=== PATIENT | female | born 1950 | race Caucasian/White ===

== ENCOUNTER → 2017-08-23 | Outpatient (CLI) | payer MEDICARE, MEDICAID ==
--- NOTE | 2017-08-23 16:54 | WOMENS IMAGING REPORT ---
EXAM DESCRIPTION: 3D SCREENING MAMMO BILAT COMPLETED DATE/TIME: 08/23/2017 7:33 am REASON FOR STUDY: ROUTINE BILATERAL SCREENING;Z12.31 Z12.31 ENCNTR SCREEN MAMMOGRAM FOR MALIGNANT N EOPLASM OF DAVON COMPARISON: 2014 to 2015 TECHNIQUE: Standard craniocaudal and mediolateral oblique views of each breast recorded using digita l acquisition and breast tomosynthesis. LIMITATIONS: None. FINDINGS: No masses, calcifications or architectural distortion. No areas of suspicion. Read with the assistance of CAD. .[facility] - R2 Cenova Version 1.3 .[facility] - R2 Cenova Version 1.3 .[facility] - R2 Cenova Version 2.4 .[facility] - R2 Cenova Version 2.4 .[facility] - R2 Striker Out Version 9.2 IMPRESSION: NORMAL MAMMOGRAM. BIRADS 1. BREAST DENSITY: b. There are scattered areas of fibroglandular density. BIRAD: 1 NEGATIVE RECOMMENDATION: ROUTINE SCREENING COMMENT: The patient has been notified of the results by letter per SA requirements. Additional no tification policies are in place for contacting patient with suspicious or incomplete findings. Quality ID #[id number]: The [employer] recommends an annual screening mammogram for women aged 40 years or over. This facility utilizes a reminder system to ensure that all patients receive reminder letters, and/or direct phone calls for appointments. This includes reminders for routine scr eening mammograms, diagnostic mammograms, or other Breast Imaging Interventions when appropriate. Th is patient will be placed in the appropriate reminder system. The [employer] (ACR) has developed recommendations for screening MRI of the breast s in certain patient populations, to be used in conjunction with mammography. Breast MRI surveillanc e may be appropriate for women with more than 20% lifetime risk of developing breast cancer as deter mined by genetic testing, significant family history of the disease, or history of mantle radiation f or Hodgkins Disease. ACR Practice Guidelines 2008. DBT Technology DBT is a type of tomographic mammography. With conventional mammography, overlapping breast tissue ma y make lesions difficult to detect, even with good compression. DBT uses an x-ray tube that rotates a round the breast, taking images at different angles. These images are then combined to create thin sl ices of the breast that the radiologist can view as a 3D reconstruction. The [employer] unit can perform full-field digital mammograms (2D imaging); or DBT (3D imaging); or both, in a combination mode that quickly performs both the mammogram and the tomosynthesis scan while the breast is still compressed. PQRS 6045F: Fluoroscopic imaging is not utilized for breast tomosynthesis. TECHNICAL DOCUMENTATION: FINDING NUMBER: (1) ASSESSMENT: (1) JOB ID: [id number] [employer]- All Rights Reserved
== END ==
LOC: WI 07:06
PROVIDERS: ATTEND Internal Medicine
DX: Z12.31 Encounter for screening mammogram for malignant neoplasm of breast (principal)
CPT/HCPCS: 77063; 77067

== ENCOUNTER → 2018-05-20 | Outpatient (CLI) | payer MEDICARE, MEDICAID ==
--- NOTE | 2018-05-20 12:30 | RADIOLOGY REPORT (SQ) ---
EXAM DESCRIPTION: U/S BIOPSY THYROID COMPLETED DATE/TIME: 05/20/2018 10:39 am REASON FOR STUDY: LOCALIZED ENLARGED LYMPH NODES;NONTOXIX MULTINODUL R59.0 LOCALIZED ENLARGED LYMPH NODES E04.2 NONTOXIC MULTINODULAR GOITER COMPARISON: Thyroid ultrasound 02/11/2018 TECHNIQUE: The prior imaging from 02/11/2018 was reviewed. Next patient For biopsy planning, the patient was scanned by both myself as well as the technologist. The patient has multiple bilateral cystic and solid thyroid nodules, which most likely represent a mu ltinodular goiter. Because of limitations of the patient's neck mobility, with prior fusion with hardware, and advanced kyphosis, there was a very limited window over the lower neck for thyroid ultrasound and fine needle aspiration of any nodules. Today's ultrasound imaging, limitations of acoustic window for biopsy were discussed with the patient , she declined biopsy today. 1 year follow-up ultrasound in February 2019 is recommended to exclude gr owth or change in the thyroid gland probable multinodular goiter. On today's ultrasound exam, the right lobe thyroid measures 4.3 x 2 x 2 cm in size, with a colloid cy st 1 x 0.6 cm in size in the upper pole thyroid, and a mostly solid nodule in the posterior midpole t hyroid 2.1 x 1.4 cm in size. These findings are unchanged from 02/11/2018. On today's exam, the left lobe thyroid measures 4 by 2.1 x 2 cm in size. There is a 2 x 1.7 cm right upper pole cyst with mural nodule, and a 1.8 cm midpole complex cyst. These are unchanged from 02/11 Thyroid biopsy was canceled today with recommended 1 year follow-up thyroid ultrasound in February 2019 LIMITATIONS: None. FINDINGS: Thyroid biopsy not performed. Recommend 1 year follow-up thyroid ultrasound in February 9 IMPRESSION: Probable multinodular goiter. Patient has accentuated thoracic kyphosis and cervical art rdware with fusion. Very limited window for thyroid aspirated to be performed. Patient slightly ref used biopsy today. 1 year follow-up thyroid ultrasound recommended. COMMENT: Patient medication list reviewed: Yes- Quality ID# [id number]:Eligible professional attests to doc umenting in the medical record they obtained, updated, or reviewed the patient's current medications. TECHNICAL DOCUMENTATION: JOB ID: [id number]- All Rights Reserved Reading location - IP/workstation name: [email or web address]
== END ==
LOC: RAD 09:01 → EDSTATUS 09:27 → RAD 10:00
PROVIDERS: ATTEND Otolaryngology
DX: R59.0 Localized enlarged lymph nodes (principal); E04.2 Nontoxic multinodular goiter
CPT/HCPCS: 60100

== ENCOUNTER 2018-09-17 09:44 | Emergency (ER) | payer MEDICARE, MEDICAID ==
[2018-09-17] MEDS ORDERED: LIDOCAINE 1%/EPINEPHRINE INJ 20 ML VIAL INJ ONE (10:16)
[2018-09-17] MEDS ORDERED: OXYCODONE-ACETAMINOPHEN 5-325 MG TABLET PO ONE (10:17)
[2018-09-17] MEDS ORDERED: DOXYCYCLINE HYCLATE 100 MG TABLET PO ONE (10:35)
--- NOTE | 2018-09-17 10:35 | ER Document Report ---
ED Wound - General Chief Complaint: Laceration Stated Complaint: RIGHT LEG LACERATION Time Seen by Provider: 09/17/18 10:08 Primary Care Provider: ALICIA IYER MD [Primary Care Provider] - Follow up as needed Information source: Patient Notes: Patient is a 68-year-old female who excellently hit the front part of her right lower torre on her electronic wheelchair. This caused her to fall. She sustained a laceration. Tetanus is up-to-date. Patient is no longer on Coumadin. She denies any other injury with the fall. Specifically denies hitting her head. Patient has a history of some chronic lower extremity edema/cellulitis. Patient has a penicillin allergy. She believes she has taken Keflex in the past, but is unsure. Her penicillin reaction was supposedly anaphylaxis-like. TRAVEL OUTSIDE OF THE [place] IN LAST 30 DAYS: No - HPI Patient complains to provider of: Laceration - Related Data Allergies/Adverse Reactions: codeine [Codeine] Allergy (Verified 10/11/14 18:51) cortisone [Cortisone] Allergy (Verified 10/11/14 18:51) Penicillins Allergy (Verified 10/11/14 18:51) Past Medical History - Social History Smoking Status: Current Every Day Smoker Frequency of alcohol use: None Drug Abuse: None Family History: Reviewed & Not Pertinent, CAD, Other Patient has suicidal ideation: No Patient has homicidal ideation: No - Past Medical History Cardiac Medical History: Reports: Hx Congestive Heart Failure, Hx Coronary Arter y Disease, Hx Hypercholesterolemia, Hx Hypertension, Hx Peripheral Vascular Disease Denies: Hx Atrial Fibrillation, Hx Heart Attack, Hx Pulmonary Embolism, Hx Heart Murmur Pulmonary Medical History: Reports: Hx Sleep Apnea Denies: Hx Asthma, Hx Bronchitis, Hx COPD, Hx Pneumonia, Hx Respiratory Failure, Hx Tuberculosis Neurological Medical History: Denies: Hx Seizures Endocrine Medical History: Reports: Hx Diabetes Mellitus Type 2. Denies: Hx Graves' Disease, Hx Hyperthyroidism, Hx Hypothyroidism Renal/ Medical History: Reports: Hx Ovarian Cysts. Denies: Hx Peritoneal Dialysis, Hx Pelvic Inflammatory Disease Malignancy Medical History: Denies: Hx Breast Cancer, Hx Cervical Cancer, Hx Leukemia, Hx Lung Cancer, Hx Ovarian Cancer GI Medical History: Reports: Hx Gastroesophageal Reflux Disease Musculoskeletal Medical History: Reports Hx Arthritis, Denies Hx Fibromyalgia, Denies Hx Muscular Dystrophy Psychiatric Medical History: Reports: Hx Anxiety, Hx Depression Denies: Hx Bipolar Disorder, Hx Post Traumatic Stress Disorder, Hx Schizophrenia Traumatic Medical History: Reports: Hx Fractures - Pelvis Infectious Medical History: Denies: Hx HIV Past Surgical History: Reports: Hx Appendectomy, Hx Cardiac Catheterization, Hx Cardiac Surgery - cabg x4, Hx Cholecystectomy, Hx Coronary Artery Bypass Graft, Hx Gynecologic Surgery - hysterectomy, Hx Herniorrhaphy, Hx Hysterectomy, Hx Orthopedic Surgery - Bilateral knees, Hx Tonsillectomy. Denies: Hx Bowel Surgery, Hx Section, Hx Gastric Bypass Surgery, Hx Mastectomy, Hx Pacemaker, Hx Tubal Ligation - Immunizations Hx Diphtheria, Pertussis, Tetanus Vaccination: Yes Hx Pneumococcal Vaccination: 07/05/12 Physical Exam - Vital signs Vitals: Temp Pulse Resp BP Pulse Ox 97.2 F 96 18 204/99 H 99 09/17/18 09:45 09/17/18 09:45 09/17/18 09:45 09/17/18 09:45 09/17/18 09:45 Notes: Reviewed vital signs and nursing note as charted by RN. CONSTITUTIONAL: Alert and oriented and responds appropriately to questions. Well-appearing; well-nourished HEAD: Normocephalic; atraumatic EYES: PERRL ENT: Normal nose; no rhinorrhea; moist mucous membranes; pharynx without lesions noted NECK: Supple without meningismus; non-tender BACK: The back appears normal and is non-tender to palpation EXT: Patient has an irregular flap-like laceration to the right anterior torre. Currently hemostatic. Bilateral legs have some chronic venous stasis appearance with some mild erythema which the patient and family states is baseline. Neurovascularly intact distally with pulses, strength, capillary refill, and sensation Course - Re-evaluation Re-evalutation: 09/17/18 10:34 Given the above history and physical examination in this patient with some chronic venous stasis, edema, with history of cellulitis in the past, with diabetes, we will perform copious irrigation, and then perform laceration repair and start the patient on doxycycline with strict return precautions. I do not believe any other imaging or laboratory work is necessary at this moment. - Vital Signs Vital signs: Temp Pulse Resp BP Pulse Ox 97.2 F 96 18 204/99 H 99 09/17/18 09:45 09/17/18 09:45 09/17/18 09:45 09/17/18 09:45 09/17/18 09:45 Procedures - Laceration/Wound Repair Right Lower Leg Wound length (cm): 12 Wound's Depth, Shape: Irregular, Flap Laceration pre-procedure: Sterile PPE donned, Chloraprep applied Anesthetic type: 1% Lidocaine w/epi Volume Anesthetic (mLs): 8 Irrigated w/ Saline (mLs): 1,000 Wound Repaired With: Sutures Suture Size/Type: 3:0, Ethilon Number of Sutures: 13 Post-procedure wound care: Sterile dressing applied Post-procedure NV exam normal: Yes Complications: No Notes: 09/17/18 11:27 Complex flap-like laceration Discharge - Discharge Clinical Impression: Laceration of right lower leg Qualifiers: Encounter type: initial encounter Qualified Code(s): S81.811A - Laceration without foreign body, right lower leg, initial encounter Condition: Good Disposition: HOME, SELF-CARE Additional Instructions: Come back immediately for any opening of the wound, redness around the wound, swelling, fevers, vomiting, or any other acute problems. Please make sure that she continually check your blood sugars and take the antibiotics as provided. Please follow-up with your primary care physician or here in the emergency department in 48 hours for wound recheck. Keep the area clean and dry and change the dressings twice daily. Prescriptions: Doxycycline Hyclate 100 mg PO BID 10 Days #20 capsule Referrals: ALICIA IYER MD [Primary Care Provider] - Follow up as needed
[2018-09-17 11:51] VITALS: BP 178/68
== END 2018-09-17 11:54 | disposition home or self-care (01) ==
LOC: ER 09:44
DX: S81.811A Laceration without foreign body, right lower leg, initial encounter (principal); W18.09XA Striking against other object with subsequent fall, initial encounter; E11.51 Type 2 diabetes mellitus with diabetic peripheral angiopathy without gangrene; R60.9 Edema, unspecified; F17.200 Nicotine dependence, unspecified, uncomplicated; I25.10 Atherosclerotic heart disease of native coronary artery without angina pectoris; I10 Essential (primary) hypertension; Z95.1 Presence of aortocoronary bypass graft; Z88.0 Allergy status to penicillin; Z88.8 Allergy status to other drugs, medicaments and biological substances; Z88.5 Allergy status to narcotic agent
CPT/HCPCS: 99283; 12004; A9270 ×2; J3490

== ENCOUNTER → 2018-10-07 | Outpatient (CLI) | payer MEDICARE, MEDICAID ==
[2018-10-07 16:12] LABS: ABSOLUTE EOSINOPHILS # (AUTO) 0.1 10^3/uL (0.0-0.6); ABSOLUTE LYMPHOCYTES (AUTO) 1.1 10^3/uL (0.5-4.7); ABSOLUTE MONOCYTES (AUTO) 0.4 10^3/uL (0.1-1.4); BASOPHILS % (AUTO) 0.4 % (0-2); EOSINOPHILS % (AUTO) 1.9 % (0-6); HEMATOCRIT 32.7 % (36.0-47.0); HEMOGLOBIN 10.7 g/dL (12.0-15.5); LYMPHOCYTES % (AUTO) 16.5 % (13-45); MEAN CORPUSCULAR HEMOGLOBIN 28.9 pg (27.0-33.4); MEAN CORPUSCULAR HGB CONC 32.7 g/dL (32.0-36.0); MEAN CORPUSCULAR VOLUME 88 fl (80-97); MONOCYTES % (AUTO) 6.5 % (3-13); PLATELET COUNT 214 10^3/uL (150-450); RED CELL DISTRIBUTION WIDTH 16.4 % (11.5-14.0); SEGMENTED NEUTROPHILS % (AUTO) 74.7 % (42-78); TOTAL CELLS COUNTED % (AUTO) 100 %; WHITE BLOOD COUNT 6.6 10^3/uL (4.0-10.5)
[2018-10-07 16:43] LABS: ALANINE AMINOTRANSFERASE 22 U/L (9-52); ALBUMIN 3.2 g/dL (3.5-5.0); ALKALINE PHOSPHATASE 107 U/L (38-126); ASPARTATE AMINO TRANSFERASE 18 U/L (14-36); BILIRUBIN,DIRECT 0.3 mg/dL (0.0-0.4); BILIRUBIN,TOTAL 0.4 mg/dL (0.2-1.3); BLOOD UREA NITROGEN 20 mg/dL (7-20); C-REACTIVE PROTEIN 18.7 mg/L (<10.0); CALCIUM 8.9 mg/dL (8.4-10.2); GLUCOSE 119 mg/dL (75-110); TOTAL PROTEIN 6.2 g/dL (6.3-8.2)
[2018-10-07 16:46] LABS: CARBON DIOXIDE 31 mmol/L (22-30); CHLORIDE 106 mmol/L (98-107); SODIUM 139.9 mmol/L (137-145)
[2018-10-07 16:53] LABS: ANION GAP 3 (5-19)
[2018-10-07 17:01] LABS: ERYTHROCYTE SEDIMENTATION RATE 49 mm/hr (0-30)
== END ==
LOC: WC 14:31
PROVIDERS: ATTEND Surgery
DX: L97.222 Non-pressure chronic ulcer of left calf with fat layer exposed (principal); E11.621 Type 2 diabetes mellitus with foot ulcer
CPT/HCPCS: 36415; 80053; 83036; 85025; 85652; 86140

== ENCOUNTER → 2018-11-10 | Outpatient (CLI) | payer MEDICARE, MEDICAID ==
--- NOTE | 2018-11-12 10:28 | XCELERA REPORT ---
[address] [address] Lower Extremity Arterial Evaluation Name: AMANDA HUNTER Age: 68 yrs Gender: Female : 1950 Patient Status: Outpatient Patient Location: [facility] Study Date: 11/10/2018 01:25 PM Procedure: A color flow and duplex scan of the lower extremity arteries was performed bilaterally with velocity and waveform anaylsis. Ankle brachial indicies performed. Reason For Study: ULCER Ordering Physician: SMILEY COY Performed By: Kaylee Enamorado Measurements and Calculations Right Left BAIT MAKER PSV -117.1 -164.4cm/sec Prox PFA PSV 68.2 71.4 cm/sec Prox SFA PSV 81.7 123.5 cm/sec Mid SFA PSV 73.7 104.4 cm/sec Dist SFA PSV 125.6 107.8 cm/sec Mid CRYSTAL PSV 69.2 84.2 cm/sec Mid CRUISE COUNSELOR PSV 93.8 90.8 cm/sec Michael Pedis PSV -83.6 -77.5 cm/sec Right Side Arterial Evaluation Normal velocity and triphasic waveforms noted from the Common Femoral artery to the infrageniculate vessels . Ankle Brachial index not obtained due to non compressibility. Left Side Arterial Evaluation Normal velocity and triphasic waveforms noted from the Common Femoral artery to the infrageniculate vessels . Ankle Brachial index not obtained due to non compressibility. Interpretation Summary No hemodynamically significant lesions in the bilateral lower extremities, on duplex imaging, at rest. : SMILEY COY > Smiley Coy
== END ==
LOC: SP 12:46
PROVIDERS: ATTEND Surgery
DX: L97.222 Non-pressure chronic ulcer of left calf with fat layer exposed (principal)
CPT/HCPCS: 93922; 93925

== ENCOUNTER → 2019-02-23 | Outpatient (CLI) | payer MEDICARE, MEDICAID ==
[~2019-02-23] MED LIST: ALBUTEROL SULFATE 0.083% NEB 2.5 MG/3 ML AMPUL NEB ONE
== END ==
LOC: RT 08:44
PROVIDERS: ATTEND Physician Assistant
DX: R05 Cough (principal); R06.02 Shortness of breath
CPT/HCPCS: 94060; A9270